=== PATIENT | female | born 1965 | race Caucasian/White ===

== ENCOUNTER 2017-11-08 20:20 | Emergency (ER) | payer BC ==
--- NOTE | 2017-11-08 20:37 | UC ---
Complaint Female HPI - HPI Summary HPI Summary: pt is c/o frequent-urgent urination x 2 days. hx of uti's with same s/s's. txing with azo. - History Of Current Complaint Stated Complaint: URINARY Time Seen by Provider: 11/08/17 20:30 Hx Obtained From: Patient Onset/Duration: Gradual Onset Timing: Constant Aggravating Factor(s): Nothing Alleviating Factor(s): Nothing Associated Signs And Symptoms: Negative: Fever - Allergies/Home Medications Allergies/Adverse Reactions: Allergies Allergy/AdvReac Type Severity Reaction Status Date / Time meperidine [From Demerol] Allergy Rash Verified 11/08/17 20:38 promethazine [From Phenergan] Allergy Rash Verified 11/08/17 20:38 Home Medications: Home Medications BuPROPion XL* [Bupropion XL*] 1 tab QPM 11/08/17 [History Confirmed 11/08/17] Cetirizine* [ZyrTEC 10 MG TAB*] 1 tab QPM 11/08/17 [History Confirmed 11/08/17] Metoprolol Tartrate TAB* [Lopressor TAB*] 1 tab QPM 11/08/17 [History Confirmed 11/08/17] Pantoprazole TAB (NF) [Protonix TAB (NF)] 1 tab QPM 11/08/17 [History Confirmed 11/08/17] raNITIdine HCl [Zantac] 1 tab QPM 11/08/17 [History Confirmed 11/08/17] traMADol TAB* [Ultram*] 1 tab TID PRN 11/08/17 [History Confirmed 11/08/17] PMH/Surg Hx/FS Hx/Imm Hx - Additional Past Medical History Additional PMH: allergies, back pain Cardiovascular History: Other - tachycardia Other Cardiovascular History: tachycardia GI/ History: Gastroesophageal Reflux Psychological History: Anxiety - Family History Known Family History: Positive: Cardiac Disease, Hypertension, Diabetes - Social History Occupation: Employed Full-time Lives: With Family - Immunization History Vaccination Up to Date: Yes Review of Systems Constitutional: Negative Skin: Negative Eyes: Negative ENT: Negative Respiratory: Negative Cardiovascular: Negative Gastrointestinal: Negative Genitourinary: Frequency, Urgency Motor: Negative Neurovascular: Negative Musculoskeletal: Negative Neurological: Negative Psychological: Negative Is Patient Immunocompromised?: No All Other Systems Reviewed And Are Negative: Yes Physical Exam Triage Information Reviewed: Yes Appearance: Well-Appearing Vital Signs Reviewed: Yes Eyes: Positive: Conjunctiva Clear ENT: Positive: Normal ENT inspection Neck: Positive: Supple, Nontender, No Lymphadenopathy Respiratory: Positive: Lungs clear, Normal breath sounds Cardiovascular: Positive: RRR, No Murmur Abdomen Description: Positive: Nontender, No Organomegaly, Soft. Negative: Bruit, CVA Tenderness (R), CVA Tenderness (L), Distended, Guarding Bowel Sounds: Positive: Present Musculoskeletal: Positive: ROM Intact Neurological: Positive: Alert Psychological: Positive: Age Appropriate Behavior Skin Exam: Normal Diagnostics - Laboratory Diagnostic Studies Completed/Ordered: no u/a due to azo but culture is pending. Complaint Female Dx - Course Course Of Treatment: non toxic, no acute abdomen, hx uti's with same s/s's thus will tx presumptively - Differential Dx/Diagnosis Provider Diagnoses: dysuria Discharge - Sign-Out/Discharge Documenting (check all that apply): Patient Departure - Discharge Plan Condition: Stable Disposition: HOME Patient Education Materials: Dysuria (ED) Referrals: Melony Mars MD [Primary Care Provider] - - Billing Disposition and Condition Condition: STABLE Disposition: Home
[2017-11-08 20:46] VITALS: BP 153/86
[2017-11-08] MEDS ORDERED: Nitrofurantoin Macrocrystals* 50 MG CAP PO ONE (20:54)
== END 2017-11-08 20:59 | disposition home or self-care (01) ==
LOC: UCCORT 20:20
DX: R30.0 Dysuria (principal); K21.9 Gastro-esophageal reflux disease without esophagitis; F41.9 Anxiety disorder, unspecified; Z88.5 Allergy status to narcotic agent; Z88.8 Allergy status to other drugs, medicaments and biological substances; Z79.899 Other long term (current) drug therapy
CPT/HCPCS: 87086; 99202; A9270-GY; G0463